=== PATIENT | male | born 1995 | race Caucasian/White ===

== ENCOUNTER 2019-08-12 20:22 | Emergency (ER) | payer SELFPAY ==
[~2019-08-12] VITALS: Ht 180.3 cm; Wt 79.4 kg
[2019-08-12 20:27] VITALS: BP_SYST 146
--- NOTE | 2019-08-12 20:27 | NUR ---
Patient to ER H1 for evaluation. Side rails up. Accompanied by MUKUND
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
--- NOTE | 2019-08-12 20:41 | NUR ---
ER Dr. Hamm at bedside examining patient.
[2019-08-12] MEDS ORDERED: ACETAMINOPHEN 500 MG TABLET PO ONE (21:00)
[2019-08-12 21:32] VITALS: BP_SYST 135
--- NOTE | 2019-08-12 21:32 | NUR ---
Patient given written and verbal discharge instructions and verbalizes understanding. ER MD discussed with patient the results and treatment provided. Patient in stable condition. ID arm band removed. No Rx given. Patient educated on pain management and to follow up with PMD. Pain Scale 0. Opportunity for questions provided and answered. Medication side effect fact sheet provided. Accompanied by MUKUND.
== END 2019-08-12 21:32 ==
LOC: SED 20:22
DX: S63.91XA Sprain of unspecified part of right wrist and hand, initial encounter (principal); W23.0XXA Caught, crushed, jammed, or pinched between moving objects, initial encounter; Y93.89 Activity, other specified; Y92.89 Other specified places as the place of occurrence of the external cause; Y99.8 Other external cause status
CPT/HCPCS: 99283